=== PATIENT | male | born 1995 | race Two or more races ===

== ENCOUNTER 2017-03-09 16:57 | Emergency (ER) | payer SELFPAY ==
[2017-03-09] MEDS ORDERED: IBUPROFEN 600 MG TABLET ONE (17:44)
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
[2017-03-09] MEDS ORDERED: OXYCODONE/ACETAMINOPHEN 5/325 MG TABLET ONE (17:58)
--- NOTE | 2017-03-09 18:46 | RAD ---
HAND-RIGHT 3 VIEWS HISTORY: Post splint placement. COMPARISONS: Examination of the same day. FINDINGS: 3 views of the right hand demonstrate interval placement of splint material along the ulnar aspect of the forearm, wrist and hand. There is reidentification of the comminuted fracture involving the proximal right fifth metacarpal with intra-articular extension. The appearance of the fracture fragments is similar to that seen on prior examination. IMPRESSION: 1. A stable appearance of the comminuted intra-articular fracture of the proximal right fifth metacarpal status post splint placement.
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
== END 2017-03-09 19:00 | disposition home or self-care (01) ==
LOC: ED 16:57
DX: S62.306A Unspecified fracture of fifth metacarpal bone, right hand, initial encounter for closed fracture (principal); Y04.0XXA Assault by unarmed brawl or fight, initial encounter